=== PATIENT | male | born 1985 | race Hispanic/Latino ===

== ENCOUNTER 2017-03-31 23:41 | Emergency (ER) | payer OTHER ==
[~2017-03-31] VITALS: Ht 170.2 cm; Wt 88.5 kg
[2017-04-01 02:33] VITALS: BP 124/54
--- NOTE | 2017-04-01 04:31 | Diagnostic Imaging Report ---
PELVIS AP 1-2 VIEWS, HAND 3+ VIEWS RIGHT Comparison: None Clinical history: Fall off a ladder with pelvic pain, right hand pain Findings: Pelvis: No acute fracture or dislocation. Right hand: No acute fracture or dislocation. Impression: No acute bony abnormality Signed by: Dr Sharla Owens MD on 04/01/2017 12:51 AM
--- NOTE | 2017-04-01 04:31 | Diagnostic Imaging Report ---
CHEST SINGLE (PORTABLE), 03/31/2017 11:50 PM Technique: CHEST SINGLE (PORTABLE) Comparison: None available. Clinical history: Status post fall from a ladder 15 feet Findings: Unremarkable appearance of the heart, mediastinum, lungs and pleural spaces. No acute bony abnormality seen. Impression: 1. Lines/Tubes: None 2. No acute abnormality. Signed by: Dr Sharla Owens MD on 04/01/2017 12:52 AM
--- NOTE | 2017-04-01 04:31 | Diagnostic Imaging Report ---
History: Fall Comparison studies: None Technique: Axial images were obtained through the maxillofacial region. Coronal and sagittal images reconstructed from the axial data. Intravenous contrast: None Findings: Soft tissues: Swelling of the left upper lip Bones: No fractures or bone abnormalities. Orbits: Globes: Intact Extra or intraconal abnormalities: None. Paranasal sinuses: Mild mucosal thickening of the right maxillary sinus. IMPRESSION: 1. No acute bone abnormality Signed by: DR Mario De La Garza M.D. on 04/01/2017 12:49 AM
--- NOTE | 2017-04-01 04:31 | Diagnostic Imaging Report ---
History: Fall, pain Comparison studies:None Technique: Axial images were obtained from the brain and cervical spine. Coronal and sagittal images reconstructed from the axial data. Intravenous contrast: None Findings: Head CT: Scalp/skull: No abnormalities. No fractures, blastic or lytic lesions. Brain sulci: Appropriate for age. Ventricles: Normal in size and configuration. No hydrocephalus. Extra-axial spaces: No masses. No fluid collections. Parenchyma: No abnormal densities. No masses, hemorrhage, acute or chronic cortical vascular insults. Sellar/suprasellar region: No abnormalities. Craniocervical junction: Patent foramen magnum. No Chiari one malformation. Cervical spine CT: Fractures: None. Soft tissues: No gross abnormalities. Atlantoaxial articulation: Intact. Alignment: Straightening of the normal lordosis. No scoliosis. Cervicomedullary junction: No abnormalities. Patent foramen magnum. Vertebrae: No infection or neoplasm. Degenerative changes: None. Incidental findings: None. Impression: Head CT: 1. No abnormality. Cervical spine CT: 1. No acute abnormalities. 2. Cannot exclude ligament, spinal cord and or vascular abnormalities on the basis of this examination.. Signed by: DR Mario De La Garza M.D. on 04/01/2017 12:50 AM
== END 2017-04-01 02:34 | disposition home or self-care (01) ==
LOC: ER 23:41
DX: S00.83XA Contusion of other part of head, initial encounter (principal); S01.511A Laceration without foreign body of lip, initial encounter; S00.511A Abrasion of lip, initial encounter; S00.31XA Abrasion of nose, initial encounter; W11.XXXA Fall on and from ladder, initial encounter; Y92.008 Other place in unspecified non-institutional (private) residence as the place of occurrence of the external cause
CPT/HCPCS: 70450; 70486; 71010; 72125; 72170; 99283